=== PATIENT | female | born 1995 | race Caucasian/White ===

== ENCOUNTER 2023-04-07 16:29 | Emergency (ER) | payer OTHER ==
[~2023-04-07] VITALS: Ht 165.1 cm; Wt 74.8 kg
--- NOTE | 2023-04-07 16:51 | NUR ---
C/O BILATERAL FLANK PAIN X 2 DAYS. PT DENIES DYSURIA, HEMATURIA.
--- NOTE | 2023-04-07 16:53 | NUR ---
AT BEDSIDE FOR EVAL
--- NOTE | 2023-04-07 16:55 | NUR ---
URINE SAMPLE OBTAINED
[2023-04-07] MEDS ORDERED: IBUPROFEN 400 MG TABLET PO ONE (17:00)
[2023-04-07 17:47] LABS: BILIRUBIN,URINE NEGATIVE (NEGATIVE); COLOR,URINE YELLOW (YELLOW); LEUKOCYTE ESTERASE ,URINE NEGATIVE (NEGATIVE); NITRITE, URINE NEGATIVE (NEGATIVE); PROTEIN,URINE NEGATIVE (NEGATIVE); UGLUCOSE NEGATIVE (NEGATIVE); UROBILINOGEN,URINE 0.2 EU/dL (0.2)
--- NOTE | 2023-04-07 18:11 | NUR ---
Kunal leonard in [facility] - 04/07/23 at 1813 by ELISABETH MD AT [facility]
--- NOTE | 2023-04-07 18:12 | NUR ---
Patient discharged to home in stable condition. Written and verbal after care instructions given. Patient verbalizes understanding of instruction.
[2023-04-07 18:13] VITALS: BP 115/64; TEMP 97.9
== END 2023-04-07 18:14 | disposition home or self-care (01) ==
LOC: ER 16:34
DX: M54.50 Low back pain, unspecified (principal); J45.909 Unspecified asthma, uncomplicated; Z87.440 Personal history of urinary (tract) infections; Z88.0 Allergy status to penicillin; Z88.2 Allergy status to sulfonamides; Z60.2 Problems related to living alone
CPT/HCPCS: 84703-TC; 87086-TC

== ENCOUNTER 2023-09-23 03:17 | Emergency (ER) | payer OTHER ==
[~2023-09-23] VITALS: Ht 165.1 cm; Wt 79.4 kg
[2023-09-23 05:11] VITALS: TEMP 98.1; O2SAT 98
[2023-09-23] MEDS ORDERED: LIDOCAINE VISCOUS 2% UD 15 ML UDC ONE (05:27)
[2023-09-23] MEDS ORDERED: ACETAMINOPHEN ES 500 MG TABLET ONE (05:28)
[2023-09-23] MEDS ORDERED: NITROGLYCERIN PACKET 1 GM PACKET ONE (05:28)
[2023-09-23] MEDS ORDERED: LIDOCAINE VISCOUS 2% UD 15 ML UDC MM ONE (05:30)
[2023-09-23] MEDS ORDERED: NITROGLYCERIN PACKET 1 GM PACKET TOP ONE (05:30)
[2023-09-23] MEDS ORDERED: ACETAMINOPHEN ES 500 MG TABLET PO ONE (05:30)
[2023-09-23 05:34] VITALS: BP 151/100
[2023-09-23] MEDS ORDERED: LIDO120C10 TP (05:34)
[2023-09-23] MEDS ORDERED: ACET-2605 PO (05:34)
[2023-09-23] MEDS ORDERED: HYDR30CR79 TP (05:34)
[2023-09-23] MEDS ORDERED: DOCU-141 PO (05:36)
[2023-09-23] MEDS ORDERED: MAGN296S72 PO (05:36)
[2023-09-23] MEDS ORDERED: POLY17PO4 PO (05:36)
== END 2023-09-23 06:26 | disposition home or self-care (01) ==
LOC: ER 03:17
DX: K64.9 Unspecified hemorrhoids (principal); J45.909 Unspecified asthma, uncomplicated; Z79.899 Other long term (current) drug therapy; Z60.2 Problems related to living alone; Z88.0 Allergy status to penicillin; Z88.1 Allergy status to other antibiotic agents; Z88.2 Allergy status to sulfonamides